=== PATIENT | male | born 1980 | race Caucasian/White ===

== ENCOUNTER 2018-11-08 14:30 | Emergency (ER) | payer BC ==
[2018-11-08 15:52] VITALS: BP 132/77
--- NOTE | 2018-11-08 16:12 | ER Document Report ---
ED Skin Rash/Insect Bite/Abscs - General Chief Complaint: Insect Bite Stated Complaint: ABSCESS Time Seen by Provider: 11/08/18 15:56 Primary Care Provider: [facility] [Provider Group] - Follow up in 1 week TRAVEL OUTSIDE OF THE [place] IN LAST 30 DAYS: No - HPI Notes: 38 year old male to the ED with C/O two possible boils to his right hip and to the back of head just below his scalp line. States that they started several days ago. States that he has tried to apply pressure and pop them, but they seem to be getting worse. He states that they are very tender to palpation. He has tried OTC Tylenol and Motrin without relief. Denies any fevers, chills. Does admit to generalized malaise and had one episode of vomiting this AM. States he has been tolerating fluids and food since. No known prior hx of MRSA. - Related Data Allergies/Adverse Reactions: No Known Allergies Allergy (Verified 11/08/18 14:31) Past Medical History - General Information source: Patient - Social History Smoking Status: Current Every Day Smoker Frequency of alcohol use: Occasional Drug Abuse: Other - history of opiod abuse Family History: Reviewed & Not Pertinent Patient has suicidal ideation: No Patient has homicidal ideation: No Renal/ Medical History: Denies: Hx Peritoneal Dialysis Review of Systems - Review of Systems Constitutional: Fever, Malaise EENT: No symptoms reported Cardiovascular: denies: Chest pain, Palpitations, Dyspnea, Syncope, Dizziness, Lightheaded Respiratory: denies: Cough, Short of breath Gastrointestinal: Nausea, Vomiting. denies: Abdominal pain, Diarrhea Musculoskeletal: No symptoms reported Skin: See HPI, Rash Neurological/Psychological: No symptoms reported -: Yes All other systems reviewed and negative Physical Exam - Vital signs Vitals: Temp Pulse Resp BP Pulse Ox 98.3 F 84 16 120/77 93 11/08/18 14:57 11/08/18 14:57 11/08/18 14:57 11/08/18 14:57 11/08/18 14:57 Interpretation: Normal - General General appearance: Appears well, Alert - HEENT Head: Normocephalic, Atraumatic Eyes: Normal Pupils: PERRL Ears: Normal External canal: Normal Tympanic membrane: Normal Sinus: Normal Nasal: Normal Mouth/Lips: Normal Mucous membranes: Normal Pharynx: Normal Neck: Normal, Other - see skin - Respiratory Respiratory status: No respiratory distress Chest status: Nontender Breath sounds: Normal Chest palpation: Normal - Cardiovascular Rhythm: Regular Heart sounds: Normal auscultation Murmur: No - Abdominal Inspection: Obese Distension: No distension Bowel sounds: Normal Tenderness: Nontender Organomegaly: No organomegaly - Neurological Neuro grossly intact: Yes Cognition: Normal Orientation: AAOx4 Tim Coma Scale Eye Opening: Spontaneous Tim Coma Scale Verbal: Oriented [place] Coma Scale Motor: Obeys Commands [place] Coma Scale Total: 15 Speech: Normal Motor strength normal: LUE, RUE, LLE, RLE Sensory: Normal - Psychological Associated symptoms: Normal affect, Normal mood - Skin Skin Temperature: Warm Skin Moisture: Dry Skin irregularity: Tender indurated area - there is to the back of the scalp along the hairline an area of tender induration. US to this area does not reveal pus pocket. There is no fluctuance and no active drainage. There is another area of induration and erythema to the right hip at the waistband, Also no pus pocket identified on US. There is no active drainage or fluctuance. There is no streaking lymphangitis., other Course - Re-evaluation Re-evalutation: Impression: Cellulitis without evidence of arie abscess formation on bedside US. Will start on Abx, encouraged warm compresses. Patient reports episode of vomiting this AM, but is drinking pepsi and tolerating vending machine snacks without difficulty. Urged to return if worse. Wound check in 2 days. Patient agrees with the plan. - Vital Signs Vital signs: Temp Pulse Resp BP Pulse Ox 97.8 F 81 16 132/77 H 99 11/08/18 15:48 11/08/18 15:48 11/08/18 15:48 11/08/18 15:48 11/08/18 15:48 Discharge - Discharge Clinical Impression: Cellulitis of hip, right, Folliculitis barbae, Cellulitis of scalp Condition: Stable Disposition: HOME, SELF-CARE Instructions: Cellulitis ([facility]) Additional Instructions: Complete all antibiotics. Apply warm compresses to the areas. Return if any worsening symptoms such as intractable vomiting, fevers, worsening redness, or any other concerns. Prescriptions: Sulfamethoxazole/Trimethoprim [Bactrim Ds Tablet] 1 each PO BID #20 tablet Mupirocin [Bactroban 2% Ointment 22 gm] 1 applic TP TID #1 tube Cephalexin Monohydrate [Keflex 500 mg Capsule] 500 mg PO QID #40 capsule Acetaminophen with Codeine [Tylenol #3 Tablet] 1 each PO BID #6 tablet Ondansetron [Zofran Odt 4 mg Tablet] 1 - 2 tab PO Q4H PRN #15 tab.rapdis PRN Reason: For Nausea/Vomiting Referrals: [facility] [Provider Group] - Follow up in 1 week
[2018-11-08] MEDS ORDERED: ONDANSETRON 4 MG TAB.RAPDIS PO ONE (16:13)
[2018-11-08] MEDS ORDERED: CEPHALEXIN 500 MG CAPSULE PO ONE (16:14)
[2018-11-08] MEDS ORDERED: SULFAMETHOXAZOLE/TRIMETHOPRIM 800-160 MG TABLET PO ONE (16:14)
== END 2018-11-08 16:30 | disposition home or self-care (01) ==
LOC: ER 14:30
DX: L03.115 Cellulitis of right lower limb (principal); L03.811 Cellulitis of head [any part, except face]; L73.8 Other specified follicular disorders; R53.81 Other malaise; R11.2 Nausea with vomiting, unspecified; W57.XXXA Bitten or stung by nonvenomous insect and other nonvenomous arthropods, initial encounter; F17.200 Nicotine dependence, unspecified, uncomplicated
CPT/HCPCS: 99283; S0119